=== PATIENT | female | born 1940 | race Caucasian/White ===

== ENCOUNTER 2017-11-18 16:52 | Inpatient (IN) | payer OTHER, MEDICAID ==
[~2017-11-18] VITALS: Ht 152.4 cm; Wt 90.7 kg
[2017-11-18 18:04] LABS: BASOPHILS % (AUTO) 0.6 % (0.0-2.0); EOSINOPHILS # (AUTO) 0.2 K/uL (0.0-0.7); EOSINOPHILS % (AUTO) 2.7 % (0.0-7.0); HEMATOCRIT 36.1 % (31.2-41.9); HEMOGLOBIN 12.1 g/dL (10.9-14.3); LYMPHOCYTES # (AUTO) 1.5 K/uL (20.0-40.0); LYMPHOCYTES % (AUTO) 23.8 % (20.5-51.5); MEAN CORPUSCULAR HEMOGLOBIN 29.6 uug (24.7-32.8); MEAN CORPUSCULAR HGB CONC 33 g/dL (32.3-35.6); MEAN CORPUSCULAR VOLUME 88.6 fL (75.5-95.3); MONOCYTES # (AUTO) 0.5 K/uL (2.0-10.0); MONOCYTES % (AUTO) 8.5 % (0.0-11.0); NEUTROPHILS # (AUTO) 4.1 K/uL (1.8-8.9); NEUTROPHILS % (AUTO) 64.4 % (38.5-71.5); PLATELET COUNT (AUTO) 239 K/uL (179-408); RED BLOOD CELL COUNT(AUTO) 4.08 MIL/uL (3.63-4.92); WHITE BLOOD COUNT (AUTO) 6.4 K/uL (3.8-11.8)
[2017-11-18] MEDS ORDERED: POLY17PO4 PO (18:07)
[2017-11-18] MEDS ORDERED: LIDO30CR TP ×2 (18:07)
[2017-11-18] MEDS ORDERED: OMEP40CA37 PO (18:07)
[2017-11-18] MEDS ORDERED: GUAI237L83 PO (18:07)
[2017-11-18] MEDS ORDERED: ATOR20TA PO (18:07)
[2017-11-18] MEDS ORDERED: GABA-534 PO (18:07)
[2017-11-18] MEDS ORDERED: TRAZ-144 PO (18:07)
[2017-11-18] MEDS ORDERED: DOCU100C36 PO (18:07)
[2017-11-18] MEDS ORDERED: FLUT16SP BNOSTRILS (18:07)
[2017-11-18] MEDS ORDERED: HYDR28CR67 TP (18:07)
[2017-11-18] MEDS ORDERED: SENN1TAB83 PO (18:07)
[2017-11-18] MEDS ORDERED: LORA10TA7 PO (18:07)
[2017-11-18] MEDS ORDERED: DEXT15DR6 EACHEYE (18:07)
[2017-11-18] MEDS ORDERED: QUET25TA PO (18:07)
[2017-11-18] MEDS ORDERED: LEVO88TA5 PO (18:07)
[2017-11-18] MEDS ORDERED: LISI-603 PO (18:07)
[2017-11-18] MEDS ORDERED: HYDR25TA4 PO (18:07)
[2017-11-18 18:12] LABS: CARBON DIOXIDE 30 mmol/L (21-32); CHLORIDE 100 mmol/L (98-107); CREATININE 1.1 mg/dL (0.6-1.3); GLUCOSE 96 mg/dL (74-106); POTASSIUM 3.8 mmol/L (3.5-5.1); UREA NITROGEN, BLOOD 20 mg/dL (7-18)
[2017-11-18 18:14] LABS: ETHANOL < 3 MG/DL (0-0)
[2017-11-18] MEDS ORDERED: ACET-2154 PO (18:14)
[2017-11-18] MEDS ORDERED: DIPH25CA83 PO (18:14)
[2017-11-18] MEDS ORDERED: [UNRECOGNIZED DRUG - CODE] PO (18:14)
[2017-11-18] MEDS ORDERED: OXYC-128 PO (18:14)
[2017-11-18 18:17] LABS: ALANINE AMINOTRANSFERASE 19 U/L (14-59); ALKALINE PHOSPHATASE 126 U/L (50-136); ASPARTATE AMINOTRANSFERASE 17 U/L (15-37); BILIRUBIN,DIRECT 0.1 mg/dL (0.0-0.2); BILIRUBIN,TOTAL 0.4 mg/dL (0.2-1.0); TOTAL PROTEIN, SERUM 7.8 g/dL (6.4-8.2)
[2017-11-18 18:18] LABS: ACETAMINOPHEN < 2.0 ug/mL (10-30)
[2017-11-18 18:31] LABS: THYROID STIMULATING HORMONE 1.626 mIU/mL (0.358-3.740)
[2017-11-18 18:48] LABS: *BILIRUBIN,URIN NEGATIVE (NEGATIVE); *BLOOD, URINE NEGATIVE (NEGATIVE); *COLOR,URINE YELLOW (YELLOW); *KETONES,URINE NEGATIVE (NEGATIVE); *PROTEIN,URINE NEGATIVE (NEGATIVE); *UROBILINOGEN,URINE 0.2 E.U./dl (NORMAL); LEUKOCYTE ESTERASE ,URINE TRACE (NEGATIVE); NITRITE, URINE NEGATIVE (NEGATIVE); UGLUCOSE NEGATIVE (NEGATIVE)
[2017-11-18 18:49] LABS: *CLARITY,URINE SLIGHTLY HAZY (CLEAR)
[2017-11-18 18:57] LABS: BACTERIA,URINE FEW /HPF (NONE SEEN); MUCUS,URINE FEW /LPF (0-FEW); SQUAMOUS EPITHELIAL CELL,UR MODERATE /HPF (NONE SEEN)
[2017-11-18 19:01] LABS: *AMPHETAMINE, URINE NEGATIVE (NEGATIVE); *BARBITURATE, URINE NEGATIVE (NEGATIVE); *CANNABINOID, URINE NEGATIVE (NEGATIVE); *COCCAINE, URINE NEGATIVE (NEGATIVE); *OPIATE, URINE NEGATIVE (NEGATIVE); *PHENCYCLIDINE SCREEN,URINE NEGATIVE (NEGATIVE)
[2017-11-18 21:00] VITALS: BP 166/72
[2017-11-18] MEDS ORDERED: MAGNESIUM HYDROXIDE 30 ML LIQUID UDC PO PRN (21:00)
[2017-11-18] MEDS ORDERED: LORAZEPAM 0.5 MG TABLET PO PRN (21:00)
[2017-11-18] MEDS ORDERED: [UNRECOGNIZED DRUG - OTHER] PO SCH (21:45)
[2017-11-18] MEDS ORDERED: SIMETHICONE PO SCH (21:45)
[2017-11-18] MEDS ORDERED: CALCIUM CARBONATE PO SCH (21:45)
[2017-11-18] MEDS ORDERED: Medication Not On Formulary EA (Omeprazole 1 CAP) PO SCH (21:45)
[2017-11-18] MEDS ORDERED: LORATADINE 10 MG TABLET PO PRN (21:45)
[2017-11-18] MEDS ORDERED: SENNOSIDES/DOCUSATE SODIUM TABLET PO PRN (21:45)
[2017-11-18] MEDS: TEMAZEPAM 7.5 MG CAPSULE PO PRN (23:09)
[2017-11-18] MEDS: MAG HYDROX/AL HYDROX/SIMETH 30 ML LIQUID UDC PO PRN (23:10)
[2017-11-19 03:31] VITALS: BP 166/72
[2017-11-19 07:30] VITALS: BP 179/80
[2017-11-19] MEDS: LEVOTHYROXINE SODIUM 88 MCG TABLET PO SCH (08:21)
[2017-11-19] MEDS: GABAPENTIN 300 MG CAPSULE PO SCH ×3 (08:22→16:11)
[2017-11-19] MEDS: ATORVASTATIN 10 MG TABLET PO SCH (08:22)
[2017-11-19] MEDS: DOCUSATE SODIUM 100 MG CAPSULE PO SCH ×2 (08:22→16:11)
[2017-11-19] MEDS: LISINOPRIL 20 MG TABLET PO SCH (08:23)
[2017-11-19] MEDS: HYDROCHLOROTHIAZIDE 25 MG TABLET PO SCH (08:24)
[2017-11-19] MEDS: ACETAMINOPHEN 325 MG TABLET PO PRN (09:08)
[2017-11-19] MEDS: FLUTICASONE PROP NASAL SPRAY 16 GM BOTTLE NS SCH (10:27)
[2017-11-19] MEDS: MAG HYDROX/AL HYDROX/SIMETH 30 ML LIQUID UDC PO PRN ×2 (10:58→20:43)
[2017-11-19 15:57] VITALS: BP 172/82
[2017-11-19] MEDS: METOPROLOL TARTRATE 25 MG TABLET PO SCH ×2 (17:27→20:41)
[2017-11-19] MEDS: CALCIUM CARBONATE 500 MG TAB.CHEW PO SCH (17:27)
[2017-11-19 20:00] VITALS: BP 115/53
[2017-11-19] MEDS: risperiDONE 0.25 MG TABLET PO SCH (20:41)
[2017-11-19] MEDS: OXYCODONE/APAP 5-325 MG TABLET PO PRN (20:43)
[2017-11-19 21:09] VITALS: BP 147/71
[2017-11-20] MEDS: MAG HYDROX/AL HYDROX/SIMETH 30 ML LIQUID UDC PO PRN (05:29)
[2017-11-20] MEDS: PANTOPRAZOLE SODIUM 40 MG TABLET.DR PO SCH (06:33)
[2017-11-20 07:30] VITALS: BP 150/63
[2017-11-20] MEDS: DOCUSATE SODIUM 100 MG CAPSULE PO SCH ×2 (09:41→17:00)
[2017-11-20] MEDS: LISINOPRIL 20 MG TABLET PO SCH (09:41)
[2017-11-20] MEDS: GABAPENTIN 300 MG CAPSULE PO SCH ×3 (09:42→17:38)
[2017-11-20] MEDS: LEVOTHYROXINE SODIUM 88 MCG TABLET PO SCH (09:42)
[2017-11-20] MEDS: METOPROLOL TARTRATE 25 MG TABLET PO SCH ×2 (09:42→21:00)
[2017-11-20] MEDS: ATORVASTATIN 10 MG TABLET PO SCH (09:42)
[2017-11-20] MEDS: HYDROCHLOROTHIAZIDE 25 MG TABLET PO SCH (09:43)
[2017-11-20] MEDS: FLUTICASONE PROP NASAL SPRAY 16 GM BOTTLE NS SCH (09:50)
[2017-11-20 15:44] VITALS: BP 124/55
[2017-11-20] MEDS: CALCIUM CARBONATE 500 MG TAB.CHEW PO SCH (18:01)
[2017-11-20] MEDS: POLYVINYL ALCOHOL OPHT DROPS 15 ML BOTTLE EACHEYE SCH (18:02)
[2017-11-20 20:28] VITALS: BP 106/58
[2017-11-20] MEDS: risperiDONE 0.25 MG TABLET PO SCH (20:36)
[2017-11-20 21:00] VITALS: BP 100/50
[2017-11-21] MEDS: PANTOPRAZOLE SODIUM 40 MG TABLET.DR PO SCH (06:26)
[2017-11-21 07:30] VITALS: BP 129/57
[2017-11-21] MEDS: DOCUSATE SODIUM 100 MG CAPSULE PO SCH ×2 (08:02→16:43)
[2017-11-21] MEDS: ATORVASTATIN 10 MG TABLET PO SCH (08:03)
[2017-11-21] MEDS: GABAPENTIN 300 MG CAPSULE PO SCH ×3 (08:03→16:44)
[2017-11-21] MEDS: LEVOTHYROXINE SODIUM 88 MCG TABLET PO SCH (08:03)
[2017-11-21] MEDS: LISINOPRIL 20 MG TABLET PO SCH (08:04)
[2017-11-21] MEDS: METOPROLOL TARTRATE 25 MG TABLET PO SCH ×2 (08:04→20:12)
[2017-11-21] MEDS: FLUTICASONE PROP NASAL SPRAY 16 GM BOTTLE NS SCH (08:05)
[2017-11-21] MEDS: HYDROCHLOROTHIAZIDE 25 MG TABLET PO SCH (08:05)
[2017-11-21] MEDS: POLYVINYL ALCOHOL OPHT DROPS 15 ML BOTTLE EACHEYE SCH ×2 (08:06→16:43)
[2017-11-21] MEDS: diphenhydrAMINE 25 MG CAP PO PRN (08:37)
[2017-11-21 15:00] VITALS: BP 101/50
[2017-11-21] MEDS: CALCIUM CARBONATE 500 MG TAB.CHEW PO SCH (17:03)
[2017-11-21] MEDS: risperiDONE 0.25 MG TABLET PO SCH (20:04)
[2017-11-21 20:15] VITALS: BP 121/60
[2017-11-21] MEDS: TEMAZEPAM 7.5 MG CAPSULE PO PRN (21:29)
[2017-11-22] MEDS: PANTOPRAZOLE SODIUM 40 MG TABLET.DR PO SCH (06:06)
[2017-11-22 07:30] VITALS: BP 116/54
[2017-11-22] MEDS: METOPROLOL TARTRATE 25 MG TABLET PO SCH ×2 (09:00→20:27)
[2017-11-22] MEDS: GABAPENTIN 300 MG CAPSULE PO SCH ×3 (09:06→17:38)
[2017-11-22] MEDS: ATORVASTATIN 10 MG TABLET PO SCH (09:07)
[2017-11-22] MEDS: DOCUSATE SODIUM 100 MG CAPSULE PO SCH ×2 (09:07→17:38)
[2017-11-22] MEDS: LISINOPRIL 20 MG TABLET PO SCH (09:07)
[2017-11-22] MEDS: LEVOTHYROXINE SODIUM 88 MCG TABLET PO SCH (09:07)
[2017-11-22] MEDS: FLUTICASONE PROP NASAL SPRAY 16 GM BOTTLE NS SCH (09:08)
[2017-11-22] MEDS: HYDROCHLOROTHIAZIDE 25 MG TABLET PO SCH (09:08)
[2017-11-22] MEDS: POLYVINYL ALCOHOL OPHT DROPS 15 ML BOTTLE EACHEYE SCH ×2 (09:20→17:39)
[2017-11-22] MEDS ORDERED: MAGNESIUM HYDROXIDE 30 ML LIQUID UDC PO PRN ×2 (14:00)
[2017-11-22 15:00] VITALS: BP 130/55
[2017-11-22] MEDS: CALCIUM CARBONATE 500 MG TAB.CHEW PO SCH (17:37)
[2017-11-22 20:24] VITALS: BP 112/47
[2017-11-22] MEDS: risperiDONE 0.25 MG TABLET PO SCH (20:25)
[2017-11-23] MEDS: PANTOPRAZOLE SODIUM 40 MG TABLET.DR PO SCH (06:29)
[2017-11-23] MEDS: LEVOTHYROXINE SODIUM 88 MCG TABLET PO SCH ×2 (06:30→08:34)
[2017-11-23 08:00] VITALS: BP 163/45
[2017-11-23] MEDS: ATORVASTATIN 10 MG TABLET PO SCH (08:33)
[2017-11-23] MEDS: DOCUSATE SODIUM 100 MG CAPSULE PO SCH ×2 (08:33→16:10)
[2017-11-23] MEDS: HYDROCHLOROTHIAZIDE 25 MG TABLET PO SCH (08:33)
[2017-11-23] MEDS: GABAPENTIN 300 MG CAPSULE PO SCH ×3 (08:33→16:10)
[2017-11-23] MEDS: LISINOPRIL 20 MG TABLET PO SCH (08:34)
[2017-11-23] MEDS: METOPROLOL TARTRATE 25 MG TABLET PO SCH ×2 (08:35→20:18)
[2017-11-23] MEDS: POLYVINYL ALCOHOL OPHT DROPS 15 ML BOTTLE EACHEYE SCH ×2 (08:36→16:11)
[2017-11-23] MEDS: FLUTICASONE PROP NASAL SPRAY 16 GM BOTTLE NS SCH (08:36)
[2017-11-23 16:24] VITALS: BP 97/50
[2017-11-23] MEDS: CALCIUM CARBONATE 500 MG TAB.CHEW PO SCH (17:24)
[2017-11-23] MEDS: ACETAMINOPHEN 325 MG TABLET PO PRN (18:44)
[2017-11-23 20:00] VITALS: BP 121/51
[2017-11-23] MEDS: risperiDONE 0.25 MG TABLET PO SCH (20:12)
[2017-11-24] MEDS: LEVOTHYROXINE SODIUM 88 MCG TABLET PO SCH (06:04)
[2017-11-24] MEDS: PANTOPRAZOLE SODIUM 40 MG TABLET.DR PO SCH (06:09)
[2017-11-24 07:30] VITALS: BP 153/69
[2017-11-24] MEDS: POLYVINYL ALCOHOL OPHT DROPS 15 ML BOTTLE EACHEYE SCH ×2 (09:00→17:00)
[2017-11-24] MEDS: FLUTICASONE PROP NASAL SPRAY 16 GM BOTTLE NS SCH (10:02)
[2017-11-24] MEDS: DOCUSATE SODIUM 100 MG CAPSULE PO SCH ×2 (10:03→17:38)
[2017-11-24] MEDS: ATORVASTATIN 10 MG TABLET PO SCH (10:04)
[2017-11-24] MEDS: HYDROCHLOROTHIAZIDE 25 MG TABLET PO SCH (10:04)
[2017-11-24] MEDS: GABAPENTIN 300 MG CAPSULE PO SCH ×3 (10:05→17:39)
[2017-11-24] MEDS: METOPROLOL TARTRATE 25 MG TABLET PO SCH ×2 (10:05→20:05)
[2017-11-24] MEDS: LISINOPRIL 20 MG TABLET PO SCH (10:05)
[2017-11-24] MEDS: risperiDONE 0.25 MG TABLET PO SCH (13:00)
[2017-11-24 15:10] VITALS: BP 114/58
[2017-11-24] MEDS: CALCIUM CARBONATE 500 MG TAB.CHEW PO SCH (17:39)
[2017-11-24] MEDS: risperiDONE 0.5 MG TABLET PO SCH (20:05)
[2017-11-24] MEDS ORDERED: risperiDONE 0.25 MG TABLET PO SCH (21:00)
[2017-11-24 21:30] VITALS: BP 110/47
[2017-11-25] MEDS: LEVOTHYROXINE SODIUM 88 MCG TABLET PO SCH (06:17)
[2017-11-25] MEDS: PANTOPRAZOLE SODIUM 40 MG TABLET.DR PO SCH (06:17)
[2017-11-25 07:30] VITALS: BP 166/59
[2017-11-25] MEDS: FLUTICASONE PROP NASAL SPRAY 16 GM BOTTLE NS SCH ×2 (09:00→17:50)
[2017-11-25] MEDS: ATORVASTATIN 10 MG TABLET PO SCH (09:52)
[2017-11-25] MEDS: GABAPENTIN 300 MG CAPSULE PO SCH ×3 (09:52→17:46)
[2017-11-25] MEDS: DOCUSATE SODIUM 100 MG CAPSULE PO SCH ×2 (09:53→17:46)
[2017-11-25] MEDS: HYDROCHLOROTHIAZIDE 25 MG TABLET PO SCH (09:53)
[2017-11-25] MEDS: LISINOPRIL 20 MG TABLET PO SCH (09:54)
[2017-11-25] MEDS: METOPROLOL TARTRATE 25 MG TABLET PO SCH ×2 (09:54→20:17)
[2017-11-25] MEDS: POLYVINYL ALCOHOL OPHT DROPS 15 ML BOTTLE EACHEYE SCH ×2 (09:55→17:48)
[2017-11-25] MEDS: risperiDONE 0.25 MG TABLET PO SCH ×3 (09:55→17:46)
[2017-11-25 16:16] VITALS: BP 102/48
[2017-11-25] MEDS ORDERED: hydrALAZINE HCL 25 MG TABLET PO PRN (16:30)
[2017-11-25] MEDS: BENZTROPINE MESYLATE 0.5 MG TABLET PO SCH (17:46)
[2017-11-25] MEDS: CALCIUM CARBONATE 500 MG TAB.CHEW PO SCH (17:46)
[2017-11-25] MEDS: OXYCODONE/APAP 5-325 MG TABLET PO PRN (18:03)
[2017-11-25 19:57] VITALS: BP 122/36
[2017-11-25] MEDS: risperiDONE 0.5 MG TABLET PO SCH (20:05)
[2017-11-25] MEDS: DIVALPROEX ER 250 MG TAB.SR.24H PO SCH (20:19)
[2017-11-26] MEDS: PANTOPRAZOLE SODIUM 40 MG TABLET.DR PO SCH (06:09)
[2017-11-26] MEDS: LEVOTHYROXINE SODIUM 88 MCG TABLET PO SCH (06:09)
[2017-11-26 06:35] VITALS: BP 200/61
[2017-11-26 07:18] VITALS: BP 153/65
[2017-11-26 08:00] VITALS: BP 153/65
[2017-11-26 08:15] LABS: BASOPHILS % (AUTO) 0.6 % (0.0-2.0); EOSINOPHILS # (AUTO) 0.2 K/uL (0.0-0.7); EOSINOPHILS % (AUTO) 2.6 % (0.0-7.0); HEMATOCRIT 36.3 % (31.2-41.9); HEMOGLOBIN 12.1 g/dL (10.9-14.3); LYMPHOCYTES # (AUTO) 2.8 K/uL (20.0-40.0); LYMPHOCYTES % (AUTO) 37.4 % (20.5-51.5); MEAN CORPUSCULAR HEMOGLOBIN 29.8 uug (24.7-32.8); MEAN CORPUSCULAR HGB CONC 33 g/dL (32.3-35.6); MEAN CORPUSCULAR VOLUME 89.1 fL (75.5-95.3); MONOCYTES # (AUTO) 0.7 K/uL (2.0-10.0); MONOCYTES % (AUTO) 8.8 % (0.0-11.0); NEUTROPHILS # (AUTO) 3.7 K/uL (1.8-8.9); NEUTROPHILS % (AUTO) 50.6 % (38.5-71.5); PLATELET COUNT (AUTO) 214 K/uL (179-408); RED BLOOD CELL COUNT(AUTO) 4.07 MIL/uL (3.63-4.92); WHITE BLOOD COUNT (AUTO) 7.4 K/uL (3.8-11.8)
[2017-11-26 08:22] LABS: ALANINE AMINOTRANSFERASE 20 U/L (14-59); ALKALINE PHOSPHATASE 116 U/L (50-136); ASPARTATE AMINOTRANSFERASE 16 U/L (15-37); BILIRUBIN,TOTAL 0.3 mg/dL (0.2-1.0); CARBON DIOXIDE 30 mmol/L (21-32); CHLORIDE 97 mmol/L (98-107); CREATININE 1.1 mg/dL (0.6-1.3); GLUCOSE 93 mg/dL (74-106); MAGNESIUM 1.8 mg/dL (1.8-2.4); PHOSPHOROUS 4.1 mg/dL (2.5-4.9); POTASSIUM 4.5 mmol/L (3.5-5.1); TOTAL PROTEIN, SERUM 7.1 g/dL (6.4-8.2); UREA NITROGEN, BLOOD 29 mg/dL (7-18)
[2017-11-26] MEDS: METOPROLOL TARTRATE 25 MG TABLET PO SCH ×2 (09:00→20:56)
[2017-11-26] MEDS: DOCUSATE SODIUM 100 MG CAPSULE PO SCH ×2 (09:29→17:03)
[2017-11-26] MEDS: ATORVASTATIN 10 MG TABLET PO SCH (09:30)
[2017-11-26] MEDS: LISINOPRIL 20 MG TABLET PO SCH ×2 (09:30→20:55)
[2017-11-26] MEDS: BENZTROPINE MESYLATE 0.5 MG TABLET PO SCH ×2 (09:32→17:08)
[2017-11-26] MEDS: HYDROCHLOROTHIAZIDE 25 MG TABLET PO SCH (09:32)
[2017-11-26] MEDS: GABAPENTIN 300 MG CAPSULE PO SCH ×3 (09:33→17:03)
[2017-11-26] MEDS: risperiDONE 0.25 MG TABLET PO SCH ×3 (09:34→17:08)
[2017-11-26] MEDS: FLUTICASONE PROP NASAL SPRAY 16 GM BOTTLE NS SCH (09:45)
[2017-11-26] MEDS: POLYVINYL ALCOHOL OPHT DROPS 15 ML BOTTLE EACHEYE SCH ×2 (09:46→17:02)
[2017-11-26] MEDS: OXYCODONE/APAP 5-325 MG TABLET PO PRN (12:27)
[2017-11-26 17:00] VITALS: BP 114/47
[2017-11-26] MEDS: CALCIUM CARBONATE 500 MG TAB.CHEW PO SCH (17:08)
[2017-11-26 17:26] VITALS: BP 114/47
[2017-11-26 20:22] VITALS: BP 141/52
[2017-11-26] MEDS: DIVALPROEX ER 250 MG TAB.SR.24H PO SCH (20:55)
[2017-11-26] MEDS: risperiDONE 0.5 MG TABLET PO SCH (20:56)
[2017-11-27] MEDS: PANTOPRAZOLE SODIUM 40 MG TABLET.DR PO SCH (07:01)
[2017-11-27] MEDS: LEVOTHYROXINE SODIUM 88 MCG TABLET PO SCH (07:01)
[2017-11-27 07:30] VITALS: BP 133/66
[2017-11-27] MEDS: GABAPENTIN 300 MG CAPSULE PO SCH ×3 (08:45→17:47)
[2017-11-27] MEDS: DOCUSATE SODIUM 100 MG CAPSULE PO SCH ×2 (08:45→17:52)
[2017-11-27] MEDS: risperiDONE 0.25 MG TABLET PO SCH ×3 (08:45→17:48)
[2017-11-27] MEDS: BENZTROPINE MESYLATE 0.5 MG TABLET PO SCH ×2 (08:45→17:52)
[2017-11-27] MEDS: HYDROCHLOROTHIAZIDE 25 MG TABLET PO SCH (08:45)
[2017-11-27] MEDS: ATORVASTATIN 10 MG TABLET PO SCH (08:46)
[2017-11-27] MEDS: LISINOPRIL 20 MG TABLET PO SCH ×2 (08:47→20:08)
[2017-11-27] MEDS: METOPROLOL TARTRATE 25 MG TABLET PO SCH ×2 (08:47→20:07)
[2017-11-27] MEDS: POLYVINYL ALCOHOL OPHT DROPS 15 ML BOTTLE EACHEYE SCH ×2 (08:48→17:52)
[2017-11-27] MEDS: FLUTICASONE PROP NASAL SPRAY 16 GM BOTTLE NS SCH (08:48)
[2017-11-27 15:00] VITALS: BP 100/41
[2017-11-27] MEDS: CALCIUM CARBONATE 500 MG TAB.CHEW PO SCH (17:48)
[2017-11-27] MEDS: diphenhydrAMINE 25 MG CAP PO PRN (20:06)
[2017-11-27] MEDS: risperiDONE 0.5 MG TABLET PO SCH (20:06)
[2017-11-27] MEDS: DIVALPROEX ER 250 MG TAB.SR.24H PO SCH (20:06)
[2017-11-27 20:15] VITALS: BP 100/51
[2017-11-28] MEDS: PANTOPRAZOLE SODIUM 40 MG TABLET.DR PO SCH (06:18)
[2017-11-28] MEDS: LEVOTHYROXINE SODIUM 88 MCG TABLET PO SCH (06:18)
[2017-11-28] MEDS: ATORVASTATIN 10 MG TABLET PO SCH (08:22)
[2017-11-28] MEDS: GABAPENTIN 300 MG CAPSULE PO SCH ×2 (08:24→12:24)
[2017-11-28] MEDS: BENZTROPINE MESYLATE 0.5 MG TABLET PO SCH (08:24)
[2017-11-28] MEDS: risperiDONE 0.25 MG TABLET PO SCH ×2 (08:24→12:24)
[2017-11-28] MEDS: DOCUSATE SODIUM 100 MG CAPSULE PO SCH (08:24)
[2017-11-28] MEDS: POLYVINYL ALCOHOL OPHT DROPS 15 ML BOTTLE EACHEYE SCH (08:25)
[2017-11-28] MEDS: FLUTICASONE PROP NASAL SPRAY 16 GM BOTTLE NS SCH (08:25)
[2017-11-28 09:07] VITALS: BP 159/66
[2017-11-28] MEDS: METOPROLOL TARTRATE 25 MG TABLET PO SCH (09:07)
[2017-11-28] MEDS: LISINOPRIL 20 MG TABLET PO SCH (09:07)
[2017-11-28] MEDS: HYDROCHLOROTHIAZIDE 25 MG TABLET PO SCH (09:07)
[2017-11-28] MEDS ORDERED: MAGNESIUM HYDROXIDE 30 ML LIQUID UDC PO ONE (11:00)
[2017-11-28 13:31] LABS: CARBON DIOXIDE 32 mmol/L (21-32); CHLORIDE 97 mmol/L (98-107); GLUCOSE 95 mg/dL (74-106); POTASSIUM 4.8 mmol/L (3.5-5.1); UREA NITROGEN, BLOOD 26 mg/dL (7-18)
[2017-11-28 13:39] LABS: ALANINE AMINOTRANSFERASE 20 U/L (14-59); ALKALINE PHOSPHATASE 112 U/L (50-136); ASPARTATE AMINOTRANSFERASE 14 U/L (15-37); BILIRUBIN,TOTAL 0.3 mg/dL (0.2-1.0); VALPROIC ACID 14 ug/mL (50-100)
[2017-11-28 13:50] LABS: BASOPHILS % (AUTO) 0.6 % (0.0-2.0); EOSINOPHILS # (AUTO) 0.2 K/uL (0.0-0.7); EOSINOPHILS % (AUTO) 3.1 % (0.0-7.0); HEMATOCRIT 33.6 % (31.2-41.9); HEMOGLOBIN 11.2 g/dL (10.9-14.3); LYMPHOCYTES # (AUTO) 2.1 K/uL (20.0-40.0); LYMPHOCYTES % (AUTO) 30.3 % (20.5-51.5); MEAN CORPUSCULAR HEMOGLOBIN 29.7 uug (24.7-32.8); MEAN CORPUSCULAR HGB CONC 33 g/dL (32.3-35.6); MEAN CORPUSCULAR VOLUME 88.9 fL (75.5-95.3); MONOCYTES # (AUTO) 0.7 K/uL (2.0-10.0); MONOCYTES % (AUTO) 10.3 % (0.0-11.0); NEUTROPHILS # (AUTO) 3.9 K/uL (1.8-8.9); NEUTROPHILS % (AUTO) 55.7 % (38.5-71.5); PLATELET COUNT (AUTO) 228 K/uL (179-408); RED BLOOD CELL COUNT(AUTO) 3.78 MIL/uL (3.63-4.92)
== END 2017-11-28 15:00 | DRG 885 ==
LOC: EDBD 16:56 → ER 16:56 → GPS 20:34
PROVIDERS: ADMIT Psychiatry & Neurology Psychosomatic Medicine; ATTEND Internal Medicine
DX: F25.0 Schizoaffective disorder, bipolar type (principal); G62.9 Polyneuropathy, unspecified; E66.01 Morbid (severe) obesity due to excess calories; G93.89 Other specified disorders of brain; E87.1 Hypo-osmolality and hyponatremia; E03.9 Hypothyroidism, unspecified; F41.9 Anxiety disorder, unspecified; K21.9 Gastro-esophageal reflux disease without esophagitis; H04.129 Dry eye syndrome of unspecified lacrimal gland; Z91.011 Allergy to milk products; Z88.0 Allergy status to penicillin; Z88.2 Allergy status to sulfonamides; Z91.018 Allergy to other foods; G89.29 Other chronic pain; E78.5 Hyperlipidemia, unspecified; R60.0 Localized edema; Z68.39 Body mass index [BMI] 39.0-39.9, adult; Z71.3 Dietary counseling and surveillance; J30.9 Allergic rhinitis, unspecified; K59.00 Constipation, unspecified; M19.90 Unspecified osteoarthritis, unspecified site; L30.9 Dermatitis, unspecified; E11.9 Type 2 diabetes mellitus without complications; I10 Essential (primary) hypertension
CPT/HCPCS: 36415; 70030-TC; 70450; 71045; 80164; 80307; 83605; 83735; 84100; 84443; 85025; 85730; 87040; 87086; 93005; 93307; A4663; G0480; G0480-TC; J3535; Q0163